=== PATIENT | male | born 1965 | race Caucasian/White ===

== ENCOUNTER 2017-03-09 20:37 | Emergency (ER) | payer OTHER ==
[~2017-03-09] VITALS: Ht 170.1 cm; Wt 91.2 kg
[~2017-03-09 20:37] MED LIST: AUGMENTIN 875 M1 TAB PO; TRAMADOL HCL50 MG PO
[2017-03-09] MEDS ORDERED: CEPHALEXIN500 M1 PO (22:18)
== END 2017-03-09 22:37 | disposition home or self-care (01) ==
LOC: ED 20:37
DX: S61.012A Laceration without foreign body of left thumb without damage to nail, initial encounter (principal); F17.200 Nicotine dependence, unspecified, uncomplicated; Z88.0 Allergy status to penicillin; W45.8XXA Other foreign body or object entering through skin, initial encounter; W18.09XA Striking against other object with subsequent fall, initial encounter; Y93.89 Activity, other specified; Y92.89 Other specified places as the place of occurrence of the external cause; Y99.0 Civilian activity done for income or pay

== ENCOUNTER 2021-01-12 16:54 | Emergency (ER) | payer OTHER ==
[~2021-01-12] VITALS: Ht 170.1 cm; Wt 83.5 kg
[~2021-01-12 16:54] MED LIST changes: +CEPHALEXIN500 M1 PO
[2021-01-12] MEDS ORDERED: LIPITOR20 MG PO (17:17)
[2021-01-12] MEDS ORDERED: OMEPRAZOLE MAGN20 MG PO (17:18)
[2021-01-12] MEDS ORDERED: ZESTRIL20 MG PO (17:18)
[2021-01-12] MEDS ORDERED: DEPO-TESTO100 MG/1 M IM (17:19)
[2021-01-12] MEDS ORDERED: NAPROSYN500 MG PO (21:28)
== END 2021-01-12 21:19 | disposition home or self-care (01) ==
LOC: ED 16:54
DX: M25.461 Effusion, right knee (principal); Z88.0 Allergy status to penicillin; Z79.899 Other long term (current) drug therapy

== ENCOUNTER 2021-08-02 16:58 | Emergency (ER) | payer OTHER ==
[~2021-08-02] VITALS: Ht 170.1 cm; Wt 81.2 kg
[~2021-08-02 16:58] MED LIST changes: +DEPO-TESTO100 MG/1 M IM; +LIPITOR20 MG PO; +NAPROSYN500 MG PO; +OMEPRAZOLE MAGN20 MG PO; +ZESTRIL20 MG PO
== END 2021-08-02 20:29 | disposition home or self-care (01) ==
LOC: ED 16:58
DX: S83.92XA Sprain of unspecified site of left knee, initial encounter (principal); Z88.0 Allergy status to penicillin; Z79.899 Other long term (current) drug therapy; X50.1XXA Overexertion from prolonged static or awkward postures, initial encounter; Y93.89 Activity, other specified; Y92.89 Other specified places as the place of occurrence of the external cause; Y99.8 Other external cause status

== ENCOUNTER → 2021-09-20 | Outpatient (CLI) | payer OTHER ==
[2021-09-20 12:15] LABS: BASO % 0.4 % (0.0-1.0); EOS # 0.1 10*3/uL (0.0-0.4); EOS % 0.9 % (1.0-4.0); HEMATOCRIT 49.3 % (42.0-52.0); LYMPH # 2.4 10*3/uL (1.3-4.4); LYMPH % 28.2 % (27.0-41.0); MEAN CELL VOLUME 99.2 fl (80.0-94.0); MEAN CORPUSCULAR HGB 33.8 pg (27.0-31.0); MEAN CORPUSCULAR HGB CONC 34.1 g/dl (33.0-37.0); MEAN PLATELET VOLUME 10.2 fl (9.6-12.3); MONO # 0.6 10*3/uL (0.1-1.0); MONO % 7.1 % (3.0-9.0); NEUT # 5.3 10*3/uL (2.3-7.9); NEUT % 62.9 % (47.0-73.0); PLATELET COUNT AUTOMATED 225 10*3/uL (130-400); RED BLOOD COUNT 4.97 10*6/uL (4.50-5.90); RED CELL DISTRI WIDTH 12.7 % (0-14.5); WHITE BLOOD COUNT 8.5 10*3/uL (4.8-10.8)
[2021-09-20 12:31] LABS: ALKALINE PHOSPHATASE 96 U/L (45-117); SGOT/AST 11 IU/L (3-35); SGPT/ALT 18 U/L (12-78); TOTAL PROTEIN 6.8 gm/dL (6.4-8.2)
[2021-09-20 13:39] LABS: BF LYMPHOCYTES 20 %; BF MACROPHAGES 62 %; BF MESOTHELIALS 12 %
[2021-09-20 13:43] LABS: BF NEUTROPHILS 6 %
[2021-09-21 06:07] LABS: RHEUMATOID FACTOR <10.0 IU/mL (<14.0)
[2021-09-21 13:07] LABS: ANTI-RNP ANTIBODIES 1.2 AI (0.0-0.9)
[2021-09-21 14:07] LABS: ACID FAST SPEC PROCESSING Direct Inoculation (.)
[2021-09-22 01:06] LABS: CCP ANTIBODIES IGG/IGA 8 units (0-19); LUPUS DRVVT 33.1 sec (0.0-47.0); PTT-LA 29.4 sec (0.0-51.9)
[2021-09-22 03:06] LABS: LUPUS REFLEX INTERPRETATION Comment: (.)
[2021-09-28 13:06] LABS: HLA-B27 ANTIGEN Negative (.)
== END | disposition home or self-care (01) ==
LOC: LAB 11:39
PROVIDERS: ATTEND Orthopaedic Surgery
DX: M25.461 Effusion, right knee (principal)